=== PATIENT | male | born 1945 | race Caucasian/White ===

== ENCOUNTER → 2017-11-04 | Outpatient (CLI) | payer MEDICARE ==
--- NOTE | 2017-11-04 09:35 | RADIOLOGY REPORT (SQ) ---
EXAM DESCRIPTION: CT SOFT TISSUE NECK WITH COMPLETED DATE/TIME: 11/04/2017 9:19 am REASON FOR STUDY: SQUAMOUS CELL CARCINOMA OF SKIN, UNSPECIFIED C44.92 SQUAMOUS CELL CARCINOMA OF SK IN, UNSPECIFIED COMPARISON: None. TECHNIQUE: Post IV contrasted scanning from skull base through lung apices with review of bone, soft tissue and lung windows. Reconstructed coronal and sagittal MPR images reviewed. All images stored on PACS. All CT scanners at this facility use dose modulation, iterative reconstruction, and/or weight based d osing when appropriate to reduce radiation dose to as low as reasonably achievable (ALARA). [facility]: Dose Right [facility]: CareDose [facility]: Dose Right [facility]: Teradose 4D [facility]: NetVision CONTRAST TYPE AND DOSE: 80 mL Isovue 370- low osmolar. RENAL FUNCTION: Creatinine 1.1. RADIATION DOSE: . LIMITATIONS: None. FINDINGS: SKULL BASE: Intact. MAJOR SALIVARY GLANDS: No solid or cystic masses. No inflammatory changes. LYMPHADENOPATHY: No adenopathy. MUCOSAL MASSES OR ASYMMETRY: No mucosal masses or asymmetry. LARYNX/CORDS: No abnormal findings. VASCULAR STRUCTURES: The major vessels are patent. LUNG APICES: Clear. BONES: Intact. THYROID: Normal size. No masses. PARANASAL SINUSES: Clear. OTHER: No other significant finding. IMPRESSION: NO SIGNIFICANT FINDING IN THE SOFT TISSUES OF THE NECK. TECHNICAL DOCUMENTATION: JOB ID: [id number] Quality ID # [id number]: Final reports with documentation of one or more dose reduction techniques (e.g., Au tomated exposure control, adjustment of the mA and/or kV according to patient size, use of iterative reconstruction technique) 2010 [employer]- All Rights Reserved
--- NOTE | 2017-11-04 09:37 | RADIOLOGY REPORT (SQ) ---
EXAM DESCRIPTION: CT CHEST WITH COMPLETED DATE/TIME: 11/04/2017 9:19 am REASON FOR STUDY: SQUAMOUS CELL CARCINOMA OF SKIN, UNSPECIFIED C44.92 SQUAMOUS CELL CARCINOMA OF SK IN, UNSPECIFIED COMPARISON: None. TECHNIQUE: CT scan of the chest performed using helical scanning technique with dynamic intravenous contrast injection. Images reviewed with lung, soft tissue and bone windows. Reconstructed coronal and sagittal MPR images reviewed. All images stored on PACS. All CT scanners at this facility use dose modulation, iterative reconstruction, and/or weight based d osing when appropriate to reduce radiation dose to as low as reasonably achievable (ALARA). [facility]: Dose Right [facility]: CareDose [facility]: Dose Right [facility]: Teradose 4D [facility]: INFOGRAPHIQS CONTRAST TYPE AND DOSE: contrast/concentration: Isovue 370.00 mg/ml; Total Contrast Delivered: 80.0 ml; Total Saline Delivered: 55.0 ml RENAL FUNCTION: Creatinine 1.1. RADIATION DOSE: . LIMITATIONS: None. FINDINGS: LUNGS AND PLEURA: No opacities, nodules, masses. No pneumothorax. No effusions. HILAR AND MEDIASTINAL STRUCTURES: No identified masses or abnormal nodes. HEART AND VASCULAR STRUCTURES: No aneurysm or dissection. No central pulmonary emboli. No pericardi al effusion. HARDWARE: None in the chest. UPPER ABDOMEN: No significant findings. Limited exam. THYROID AND OTHER SOFT TISSUES: No masses. No adenopathy. BONES: No significant finding. OTHER: No other significant finding. IMPRESSION: NORMAL CT OF THE CHEST WITH IV CONTRAST. TECHNICAL DOCUMENTATION: JOB ID: [id number] Quality ID # [id number]: Final reports with documentation of one or more dose reduction techniques (e.g., Au tomated exposure control, adjustment of the mA and/or kV according to patient size, use of iterative reconstruction technique) 2010 [employer]- All Rights Reserved
== END ==
LOC: RAD 08:37
PROVIDERS: ATTEND Otolaryngology
DX: C44.92 Squamous cell carcinoma of skin, unspecified (principal)
CPT/HCPCS: 70491; 71260; 82565

== ENCOUNTER 2017-12-03 08:10 | Day surgery (SDC) | payer MEDICARE ==
[~2017-12-03 08:10] MED LIST: CEFAZOLIN 1 GM/D5W RTU 1 GM/50 ML RTUPB IV PRN; DEXTROSE 5%-LACTATED RINGERS 1,000 ML IV PRN
[2017-12-03 10:12] LABS: HEMATOCRIT 41.8 % (37.9-51.0); HEMOGLOBIN 14.1 g/dL (13.5-17.0); MEAN CORPUSCULAR HGB CONC 33.7 g/dL (32.0-36.0); MEAN CORPUSCULAR VOLUME 83 fl (80-97); PLATELET COUNT 183 10^3/uL (150-450); RED BLOOD COUNT 5.03 10^6/uL (4.35-5.55); RED CELL DISTRIBUTION WIDTH 15.7 % (11.5-14.0); WHITE BLOOD COUNT 8.2 10^3/uL (4.0-10.5)
[2017-12-03 10:40] LABS: ANION GAP 9 (5-19); BLOOD UREA NITROGEN 26 mg/dL (7-20); CALCIUM 9.3 mg/dL (8.4-10.2); CARBON DIOXIDE 27 mmol/L (22-30); CHLORIDE 102 mmol/L (98-107); GLUCOSE 145 mg/dL (75-110); POTASSIUM 5.3 mmol/L (3.6-5.0); SODIUM 137.8 mmol/L (137-145)
[2017-12-03] MEDS ORDERED: PROMETHAZINE HCL INJ 25 MG/1 ML VIAL IV PRN ×2 (10:56)
[2017-12-03] MEDS ORDERED: FENTANYL CITRATE INJ/PF 100 MCG/2 ML AMPUL IV PRN ×3 (10:56)
[2017-12-03] MEDS ORDERED: MORPHINE SULFATE 10 MG/ML INJ IV PRN (10:56)
[2017-12-03] MEDS ORDERED: OXYCODONE-ACETAMINOPHEN 5-325 MG TABLET PO PRN ×2 (10:56)
[2017-12-03] MEDS ORDERED: MEPERIDINE HCL/PF INJ 25 MG/1 ML DISP.SYRIN IV PRN (10:56)
[2017-12-03] MEDS ORDERED: DIPHENHYDRAMINE HCL 50 MG/ML VIAL IV PRN (10:56)
--- NOTE | 2017-12-03 11:08 | Operative Report ---
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 Esophagogastroduodenoscopy. 2. Percutaneous endoscopic gastrostomy placement SURGEON: JESENIA DUNCAN 1ST BAG CHECKER: JASON JOSEPH ANESTHESIA: LMAC TISSUE REMOVED OR ALTERED: None COMPLICATIONS: None ESTIMATED BLOOD LOSS: Scant INTRAOPERATIVE FINDINGS: See below PROCEDURE: Patient was seen in the preop holding area, cleared for LMAC anesthesia taken to the operating room where LMAC anesthesia was induced. Abdomen exposed, hair clipped in the epigastric area Instrumentation set up for upper endoscopy. Surgical plan surgical timeout conducted. Oral mouthpiece inserted. The flexible adult upper endoscope was advanced through the oropharynx down the hypopharynx past the tumor which was the posterior lateral side of the hypopharynx, with the scope advanced down through the esophagus, stomach, into the duodenum. The duodenum and stomach were grossly normal. There was some distal esophagitis. No biopsy performed. No tumor seen in the upper GI tract. Suitable site for placement of the PEG was chosen based on transillumination and the intra-abdominal wall and depression of the anterior abdominal wall. Skin was anesthetized with 1% lidocaine. Needle and Jelco threaded through the anterior abdominal wall, wire threaded through the Jelco, wire snared with the endoscope and the wire and snare with the endoscope brought out through the patient's oropharynx. A 24 [place] Endo I was pushed over the wire and brought onto the patient's anterior abdominal wall. Repeat endoscopy confirmed excellent positioning of the feeding tube. There was no significant bleeding. Wire removed from the PEG, PEG tube shortened, bolsters applied with the exterior component 24 cm from the flange. Appropriate dressings applied. Patient taught procedure well. He was taken to the recovery in stable condition. Paul dictating on Kobi Brito
[2017-12-03] MEDS ORDERED: ACETAMINOPHEN WITH CODEINE #3 TABLET PO PRN (11:10)
--- NOTE | 2017-12-03 11:10 | PDOC DISCHARGE SUMMARY ---
Discharge Summary (SDC) - Discharge Final Diagnosis: Squamous cell carcinoma of the hypopharynx Date of Surgery: 12/03/17 Discharge Date: 12/03/17 Condition: Good Treatment or Instructions: PEG tube instructions provided; return to clinic in [facility] in 2 weeks, take Tylenol as needed pain. Referrals: LACHELLE HERNANDES MD [Primary Care Provider] - Discharge Diet: As Tolerated Discharge Activity: Activity As Tolerated Home Care Assistance: Home Health Report the Following to Your Physician Immediately: Shortness of Breath, Increase in Pain, Fever over 101 Degrees
[2017-12-03] MEDS ORDERED: ACETAMINOPHEN WITH CODEINE #3 TABLET ONE (12:04)
[2017-12-03 13:20] VITALS: BP 108/56
--- NOTE | 2017-12-04 12:05 | EKG REPORT ---
SEVERITY:- OTHERWISE NORMAL ECG - SINUS RHYTHM LOW VOLTAGE IN FRONTAL LEADS : Confirmed by: Vicky Cruz 04-Dec-2017 12:04:54
== END 2017-12-03 13:10 | disposition home or self-care (01) ==
LOC: OROUT 08:10
PROVIDERS: ATTEND Surgery
PROC: 0DH63UZ Insertion of Feeding Device into Stomach, Percutaneous Approach (ICD-10-PCS; principal; 2017-12-03 10:15)
DX: C13.9 Malignant neoplasm of hypopharynx, unspecified (principal); I10 Essential (primary) hypertension; E78.00 Pure hypercholesterolemia, unspecified; E11.40 Type 2 diabetes mellitus with diabetic neuropathy, unspecified; Z80.0 Family history of malignant neoplasm of digestive organs; Z79.01 Long term (current) use of anticoagulants; Z95.5 Presence of coronary angioplasty implant and graft; Z87.891 Personal history of nicotine dependence; Z79.84 Long term (current) use of oral hypoglycemic drugs; Z79.899 Other long term (current) drug therapy
CPT/HCPCS: 36415; 82962; 85027; 80048; 93005; 93010; 43246; A9270; J0690; 731

== ENCOUNTER → 2018-01-22 | Outpatient (CLI) | payer MEDICARE ==
[2018-01-22 16:22] LABS: ABSOLUTE BASOPHILS # (AUTO) 0.1 10^3/uL (0.0-0.2); ABSOLUTE EOSINOPHILS # (AUTO) 0.1 10^3/uL (0.0-0.6); ABSOLUTE LYMPHOCYTES (AUTO) 0.6 10^3/uL (0.5-4.7); ABSOLUTE MONOCYTES (AUTO) 0.7 10^3/uL (0.1-1.4); ABSOLUTE NEUT (AUTO) 4.4 10^3/uL (1.7-8.2); HEMATOCRIT 42.7 % (37.9-51.0); HEMOGLOBIN 13.9 g/dL (13.5-17.0); LYMPHOCYTES % (AUTO) 9.6 % (13-45); MEAN CORPUSCULAR HEMOGLOBIN 28.3 pg (27.0-33.4); MEAN CORPUSCULAR HGB CONC 32.7 g/dL (32.0-36.0); MEAN CORPUSCULAR VOLUME 87 fl (80-97); MONOCYTES % (AUTO) 12.1 % (3-13); PLATELET COUNT 241 10^3/uL (150-450); RED BLOOD COUNT 4.92 10^6/uL (4.35-5.55); RED CELL DISTRIBUTION WIDTH 15.6 % (11.5-14.0); SEGMENTED NEUTROPHILS % (AUTO) 76.3 % (42-78); TOTAL CELLS COUNTED % (AUTO) 100 %; WHITE BLOOD COUNT 5.8 10^3/uL (4.0-10.5)
== END ==
LOC: LAB 15:49
PROVIDERS: ATTEND Radiology Radiation Oncology
DX: C05.1 Malignant neoplasm of soft palate (principal)
CPT/HCPCS: 36415; 85025

== ENCOUNTER → 2018-01-29 | Outpatient (CLI) | payer MEDICARE ==
--- NOTE | 2018-01-29 09:45 | RADIOLOGY REPORT (SQ) ---
EXAM DESCRIPTION: CECILY SWALLOW COMPLETED DATE/TIME: 01/29/2018 8:33 am REASON FOR STUDY: DYSPHAGIA (R13.10) R13.10 DYSPHAGIA, UNSPECIFIED COMPARISON: None. TECHNIQUE: Videofluoroscopic swallowing examination was performed in conjunction with speech patholo gy. Videofluoroscopic imaging was obtained and reviewed and these are the findings: RADIATION DOSE: Fluoro time 1.41 minutes 1 images saved to PACS. LIMITATIONS: None FINDINGS: The patient was brought into the fluoro room and placed upright on a modified barium swall ow chair. The patient was then given multiple consistencies mixed with barium to swallow under live fluoroscopic video guidance. According to the Speech Pathologist there was no penetration or aspirat ion. Please refer to the speech pathology report for further details. IMPRESSION: NO EVIDENCE OF PENETRATION OR ASPIRATION.PLEASE SEE SPEECH PATHOLOGIST REPORT FOR OTHER FINDINGS AND RECOMMENDATIONS. COMMENT: None Quality ID 145: Final reports for procedures using fluoroscopy that document radiation exposure waylon stephanie, or exposure time and number of fluorographic images (if radiation exposure indices are not avail able) TECHNICAL DOCUMENTATION: JOB ID: [id number] [employer]- All Rights Reserved Reading location - IP/workstation name: [email or web address] [id number]
--- NOTE | 2018-01-29 09:57 | ST Modified Barium Swallow ---
Recommendation - Recommendations Recommendations: No additional skilled services indicated at this time. Patient is independent with exercises and strategies established in outpatient setting. Patient to now be discharged from outpatient speech therapy. It is likely that the patient will need additional dysphagia treatment at a later time due to nature of swallowing deficits. Medical Diagnoses - Medical Diagnoses Medical Diagnosis Description & ICD-10 Code(s): dysphagia, R13.10 Other Medical Diagnoses/Co-Morbidities: per patient report: arthritis, diabetes , heart condition (stent), high blood pressure, high cholesterol, reflux, swallowing problems, throat cancer ST Modified Barium Swallow - General Date: 01/29/18 Referring Physician: Dr. 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 No surgical invervention other than biopsy, and no current chemotherapy. The patient has been receiving radiation treatment for approximately 1 month. He does currently have a PEG placed, and is receiving majority of nutrition and hydration via tube feeds. He is still eating by mouth soft solids, and drinking liquids. No difficulty reported with liquids, but does feel solids are difficult to coordinate at times. He has been evaluated and seen in outpatient setting for dysphagia strategies and exercises due to nature of swallowing changes due to radiation treatment. Medications: no medications provided by patient Allergies: none - Functional Status Prior Functional Status: INDEPENDENT: feeding - independent Current Functional Limitations: feeding - primarily via PEG - Subjective Patient/caregiver goal(s): r/o aspiration Cognitive-Linguistic Function: WNL Speech Intelligibility: WNL Current Nutritional Means: PEG, PO Current PO diet: Soft Current symptoms: other - swallowing changes due to throat cancer and radiation treatment Pain: Patient reports, 3/5 - throat pain - Objective Assessment: Upright, Left Lateral - Food Trials Used Food trials used: Thin liquids, Pureed, Regular The patient: Was Able to Self Feed - Oral-Motor Skills Dentition: Full Velo-pharyngeal function: Unremarkable - Assessment Oral prep: Normal Labial closure: Adequate Leakage: None Mastication: Lengthy Lingual Movement: Normal Oral stage: Normal for this Procedure - Pharyngeal Stage Initiation of Pharyngeal Stage Reflex: Normal Decreased laryngeal elevation: No Reduced Velopharyngeal Closure: no Reduced pressure generation: No reduced tongue-based retraction: Yes - mild Pre-swallow pooling in valleculae: None Pre-Swallow pooling in pyriforms: None Reduced Thyro-Hyoid approximation: No Reduced epiglottic excursion: No Reduced pharyngeal peristalsis/contraction: No Multiple Swallows with: Cleared w/ Liquid Assist Post-swallow residulas vallecular: None Post-Swallow residuals in pyriforms: Mild Post-Swallow Residuals: tongue-base Reduced Cricopharyngeal opening: No Pharyngeal Stage Comments: Timely swallow reflex seen. Mildly reduced tongue base retraction seen, resulting in residue on posterior tongue with solid trials, cleared with liquid wash. Mild residue seen throughout pharynx with solid trials, cleared with second swallow or liquid wash. Some signs of tissue variance in pharynx, however, this is believed to be due to underlying neoplasm. - Fall Risk Assessment Medications/Conditions that increase fall risks include: Antidepressants, sedatives, anti-arrhythmic, diuretic, benzodiazipenes, neuroleptics. BP regulation problems, cardiac problems, balance or gait deficits, neurological problems. Is patient considered at risk for falls: no Fall Risk Actions Taken: No action needed - Behavioral Observations During evaluation process patient: was pleasant, was cooperative, able to answer questions - Treatment / Educational Needs: Treatment/Education Needs: Treatment consisted of patient education on the role of the Speech Pathologist. Patient's plan of care and golas were communicated as well as scheduling and attendance policies. Recommendations for initial home program were shared. Patient demonstrated understanding and verbalized agreement. - Impression/Summary Laryngeal Penetration: No Tracheal Aspiration: no Compesatory strategies: liquid wash Patient presents with: Pharyngeal stage dysph., Mild-Moderate Risk of Aspiration: Minimal Risk of nutritional compromise: WNL Evaluation and Findings: Patient currently presents with functional swallow skills for thin liquids and soft solids. Patient is completing dysphagia exercises and strategies established prior to radiation treatment, and is independent with these. Although majority of nutrition and hydration needs are met via PEG, patient is encouraged to continue with PO trials to ensure increased preservation of swallowing skills. No other skilled intervention is indicated at this time. Patient is indepenent with Effortful Swallow, Juan Carlos Maneuver, and Tongue Base Retraction exercises. Patient to be discharged from outpatient services at this time, patient in agreement with plan. Mr. Jacobs may be seen at a future time should additional swallowing deficits arise. - Recommendations Solid diet recommendations: Pureed, Mechanical Soft Liquid Diet Modification: Thin Strict aspiration precautions: Yes Pt/Family education and followup with MD: Yes Dysphagia therapy with ESCALATOR SERVICE MECHANIC: discontinue therapy Recommended techniques: Fully Upright During Meal, Small Bites and Sips, Alternate Bites/Sips Information, Precautions and Recommendations: Patient (Written), Patient (Verbal ), Family Member (Verbal) - Time Total Time: 30 - Plan of Care Patient to follow-up with referring physician: Yes Strategies to optimize patient understanding include:: ongoing assessment of educational needs, implementation of educational strategies, and re-education. - - -: Thank you for the opportunity to work with this patient and his/her family. Should you have any questions about this patient's plan or progress, I can be reached at [phone]. Charge G Code? - - -: Yes ST F.L. Impairment Category - Rationale Based On Rationale Based On: Func. Asses. Tool Results - Swallowing Current G8996: CJ 20-39% Impaired Goal G8997: CJ 20-39% Impaired Discharge G8998: CJ 20-39% Impaired
== END ==
LOC: RAD 08:00
PROVIDERS: ATTEND Radiology Radiation Oncology
DX: R13.10 Dysphagia, unspecified (principal)
CPT/HCPCS: 74230

== ENCOUNTER → 2018-06-18 | Outpatient (CLI) | payer MEDICARE ==
--- NOTE | 2018-06-18 16:43 | RADIOLOGY REPORT (SQ) ---
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 Reconstructed coronal and sagittal MPR images reviewed. All image s stored on PACS. All CT scanners at this facility use dose modulation, iterative reconstruction, and/or weight based d osing when appropriate to reduce radiation dose to as low as reasonably achievable (ALARA). [facility]: Dose Right [facility]: CareDose [facility]: Dose Right [facility]: Teradose 4D [facility]: [employer] CONTRAST TYPE AND DOSE: contrast/concentration: Isovue 350.00 mg/ml; Total Contrast Delivered: 75.0 ml; Total Saline Delivered: 55.0 ml RENAL FUNCTION: Creatinine 0.9 RADIATION DOSE: 40 mGy . LIMITATIONS: None. FINDINGS: SKULL BASE: Inferior brain parenchyma in the field of view unremarkable. MAJOR SALIVARY GLANDS: No solid or cystic masses. No inflammatory changes. LYMPHADENOPATHY: No adenopathy. MUCOSAL MASSES OR ASYMMETRY: No mucosal masses or asymmetry. LARYNX/CORDS: No abnormal findings. VASCULAR STRUCTURES: The major vessels are patent. LUNG APICES: Clear. BONES: No fracture. Multilevel degenerative disc changes in the cervical spine THYROID: Normal size. No masses. PARANASAL SINUSES: Clear. OTHER: No other significant finding. IMPRESSION: NO SIGNIFICANT FINDING IN THE SOFT TISSUES OF THE NECK. TECHNICAL DOCUMENTATION: JOB ID: [id number] Quality ID # [id number]: Final reports with documentation of one or more dose reduction techniques (e.g., Au tomated exposure control, adjustment of the mA and/or kV according to patient size, use of iterative reconstruction technique) 2010 [employer]- All Rights Reserved Reading location - IP/workstation name: [id number]
== END ==
LOC: RAD 14:10
PROVIDERS: ATTEND Radiology Radiation Oncology
DX: C05.1 Malignant neoplasm of soft palate (principal)
CPT/HCPCS: 70492; 82565

== ENCOUNTER 2019-05-18 08:46 | Day surgery (SDC) | payer MEDICARE ==
[~2019-05-18 08:46] MED LIST changes: -CEFAZOLIN 1 GM/D5W RTU 1 GM/50 ML RTUPB IV PRN; -DEXTROSE 5%-LACTATED RINGERS 1,000 ML IV PRN; +KETOROLAC TROMETHAMINE 0.45% 4 DROP/0.4 ML DROPERETTE OS PRN; +LIDOCAINE 1% INJ-PF (10 MG/ML) 30 ML SDV ONE; +MIDAZOLAM 2 MG/2 ML INJ ONE
[2019-05-18] MEDS: TETRACAINE HCL 0.5% OPH SOLN 0.6 ML DROPERETTE OS PRN ×2 (09:13→10:45)
[2019-05-18] MEDS: CYCLOPENTOLATE 0.2%/PHENYLEPHRINE 1% OPH SOLN 2 ML OS PRN ×3 (09:13→10:36)
[2019-05-18] MEDS: TROPICAMIDE 1% OPH SOLN 3 ML OS PRN ×3 (09:13→10:36)
[2019-05-18] MEDS: BESIFLOXACIN HCL 0.6% OPH SUSP 5 ML BOTTLE OS PRN ×4 (09:14→10:26)
[2019-05-18] MEDS: LIDOCAINE 4% INJ/PF (40 MG/ML) 5 ML AMPUL OS PRN ×2 (10:04)
[2019-05-18] MEDS: BUPIVACAINE HCL 0.75% INJ/PF (7.5 MG/1 ML) 10 ML SDV OS PRN ×2 (10:04)
[2019-05-18] MEDS: EPINEPHRINE INJ/PF 1 MG/1 ML AMPULE ONE ×2 (10:16)
[2019-05-18] MEDS: CHONDR SU A NA/HYALUR INTRAOC KIT (SURGICARE) ONE ×2 (10:16)
[2019-05-18] MEDS: LIDOCAINE 1%/PHENYLEPHRINE 1.5% 1 ML VIAL ONE ×2 (10:18)
[2019-05-18] MEDS: DORZOLAMIDE HCL 2%/TIMOLOL MALEAT 0.5% OPH SOLN 10 ML OS PRN ×2 (10:26)
--- NOTE | 2019-05-18 10:40 | [facility] OPERATIVE REPORT E ---
[facility] Operative Report NAME: NOLVIA GILL AGE: 73Y DATE OF SURGERY: 05/18/2019 ROOM: PREOPERATIVE DIAGNOSIS: Cataract, left eye. POSTOPERATIVE DIAGNOSIS: Cataract, left eye. PROCEDURE PERFORMED: Phacoemulsification with posterior chamber intraocular lens, left eye. SURGEON: BONG FORD M.D. ANESTHESIA: Topical with MAC. INDICATIONS FOR SURGERY: Difficulty with glare and watching TV. PROCEDURE: The patient was brought to the operating room and placed on the operative table. Following tetracaine drops, topical anesthesia was administered. This consisted of instrument wipe pledgets soaked in a solution of 4% Xylocaine mixed with 0.75% Marcaine in a 1:2 ratio. A 2 x 1 cm pledget was placed in the superior fornix. A 1 x 1 cm pledget was placed in the inferior fornix. The eye was patched shut for 5 minutes. The patch was removed. The eye was sterilely prepped and draped in the usual manner. Lid speculum was placed in the eye. The pledgets were removed and 4-0 black silk sutures were placed around the superior and the inferior rectus muscles to be used as traction. A conjunctival peritomy was made at the 10 o'clock position. Hemostasis was obtained with bipolar cautery. A posterior limbal groove was created using a crescent knife and dissected anteriorly towards the cornea. A sharp point blade was used to create a paracentesis site at the 2 o'clock position. A 2.4 mm keratome was used to enter the anterior chamber through the groove. Viscoelastic was injected into the anterior chamber. An anterior capsulotomy was performed using Utrata forceps in a capsulorrhexis fashion. Hydrodissection and hydrodelineation were performed. Phacoemulsification was performed in [id number] technique. Total phaco time was 3.5 CDE. Following this, the I/A unit was used to remove residual cortex. Viscoelastic was injected into the capsular bag. Intraocular lens model [id number], 22.0 diopters, serial number [id number], was placed in the capsular bag. The I/A unit was used to remove residual viscoelastic. The wound was seen to be watertight under high and low pressure, and no sutures were placed. The intraocular lens was well centered. The pressure was adjusted in the eye to normal pressure. The 4-0 black silk sutures and lid speculum were removed. The eye was shielded after Besivance drops were placed. The patient tolerated the procedure well and was sent to the recovery room in good condition. A drop of Cosopt was placed in the eye at the end of the surgery. Also, 0.1 mL of phenylephrine lidocaine was injected in the eye following the incision. DICTATING PHYSICIAN: BONG FORD M.D. [id number] PHY#: [id number] ID: [id number] JOB#: [id number] ACCT: [id number] cc:BONG FORD M.D. >
--- NOTE | 2019-05-18 10:40 | [facility] DISCHARGE SUMMARY E ---
[facility] Discharge Summary NAME: NOLVIA GILL AGE: 73Y ADMITTED: 05/18/2019 DISCHARGED: 05/18/2019 FINAL DIAGNOSIS: Cataract, left eye. HOSPITAL COURSE: The patient is a 73-year-old gentleman who underwent uneventful cataract extraction with intraocular lens implant, left eye, on 05/18/2019. He will be discharged to home. He was instructed to resume preoperative medications; to take Tylenol as needed for discomfort; to keep his eye shielded; to use Pred Forte, Prolensa, and moxifloxacin at 3 p.m. and 8 p.m.; and to follow up in my office in 1 day. DICTATING PHYSICIAN: BONG FORD M.D. [id number] PHY#: [id number] ID: [id number] JOB#: [id number] ACCT: [id number] cc:BONG FORD M.D. >
== END 2019-05-18 11:07 | disposition home or self-care (01) ==
LOC: SC 08:46
PROVIDERS: ATTEND Ophthalmology
DX: H25.812 Combined forms of age-related cataract, left eye (principal); H57.03 Miosis; Z96.1 Presence of intraocular lens; K21.9 Gastro-esophageal reflux disease without esophagitis; E11.9 Type 2 diabetes mellitus without complications; Z79.899 Other long term (current) drug therapy; Z79.84 Long term (current) use of oral hypoglycemic drugs
CPT/HCPCS: 66984; 82962; V2632; J2250; J3490 ×3; A9270; J0171; J2370; 142

== ENCOUNTER → 2019-08-13 | Outpatient (CLI) | payer MEDICARE | LOC: LAB 11:17 | PROVIDERS: ATTEND Internal Medicine Critical Care Medicine | DX: J18.9 Pneumonia, unspecified organism (principal) | CPT/HCPCS: 87015; 87070; 87077; 87101; 87116; 87186; 87205; 87206 ==

== ENCOUNTER 2020-02-27 18:51 | Emergency (ER) | payer MEDICARE ==
[2020-02-27 19:12] LABS: HEMATOCRIT 34.2 % (37.9-51.0); HEMOGLOBIN 11.4 g/dL (13.5-17.0); MEAN CORPUSCULAR HEMOGLOBIN 30.4 pg (27.0-33.4); MEAN CORPUSCULAR HGB CONC 33.4 g/dL (32.0-36.0); MEAN CORPUSCULAR VOLUME 91 fl (80-97); PLATELET COUNT 366 10^3/uL (150-450); RED BLOOD COUNT 3.75 10^6/uL (4.35-5.55); RED CELL DISTRIBUTION WIDTH 21.6 % (11.5-14.0); WHITE BLOOD COUNT 8.3 10^3/uL (4.0-10.5)
--- NOTE | 2020-02-27 19:12 | ER Document Report ---
ED General - General Stated Complaint: LOW FLOW ALARM ON LVAD/SYNCOPE Time Seen by Provider: 02/27/20 18:55 Primary Care Provider: JANI LAWRENCE MD [Primary Care Provider] - Follow up as needed Notes: HPI: 74-year-old male with an extensive past medical history after what he states was around a 5-month admission to [facility], secondary to respiratory infections as well as a needed ileostomy; just discharged 3 days ago, LVAD placed during this admission in December, who presents today after he states he leaned over and had a syncopal-like episode onto the carpet. Patient states that his LVAD "low flow" alarm went off 3 times today. Only transiently. He states that this is unusual for him as he is only heard that sound one time in his past. Patient denies any and all headache, neck pain, chest pain, abdominal pain, fevers, cough, shortness of breath, vomiting, or diarrhea. This was a witnessed incident. No seizure activity or incontinence. Patient states today he has felt a little "weak all over" with a loss of appetite but denies any other real symptomatology. I called and spoke to his who is a better historian. She corroborates most of what is above. She states he has had no increased output from his ostomy. No fevers or vomiting. No diarrhea. This is the first time the patient has passed out since being discharged on . There was a transient alarm evening but no alarming since that time. She states that the alarm was going off around 4 times today. She states he did not fall or hit his head but he has "passed out" multiple times attempting to get up from the bed and from chairs. He is on Coumadin. ROS: See HPI All other review of systems reviewed and otherwise negative Reviewed vital signs and nursing note as charted by RN. PHYSICAL EXAM: CONSTITUTIONAL: Alert and oriented and responds appropriately to questions HEAD: Normocephalic; atraumatic EYES: PERRL; Conjunctivae clear, sclerae non-icteric ENT: Normal nose; no rhinorrhea; moist mucous membranes; pharynx without lesions noted NECK: Supple without meningismus; no JVD present; healing anterior scar consistent with a recent trach; non-tender; no cervical lymphadenopathy, no masses CARD: LVAD hum is present RESP: Normal chest excursion without splinting or tachypnea; breath sounds clear and equal bilaterally; no wheezes, no rhonchi, no rales ABD/GI: Normal bowel sounds; non-distended; LVAD dressing to the left abdomen; ileostomy to the mid lower abdomen with a pink stoma with normal color flui; abdomen is soft, non-tender BACK: The back appears normal and is non-tender to palpation EXT: Normal ROM in all joints; non-tender to palpation; no edema SKIN: Patient is consistent with venipuncture present to bilateral upper extremities. Extremities are slightly cool but perfused with normal color NEURO: CN 2-12 intact; 5/5 bilateral upper and lower extremity strength with sensation intact to light touch PSYCH: The patient's mood and manner are appropriate. Grooming and personal hygiene are appropriate. TRAVEL OUTSIDE OF THE [place] IN LAST 30 DAYS: No - Related Data Allergies/Adverse Reactions: No Known Allergies Allergy (Unverified 12/02/17 16:17) Past Medical History - Social History Smoking Status: Unknown if Ever Smoked Family History: Reviewed & Not Pertinent - Past Medical History Cardiac Medical History: Reports: Hx Coronary Artery Disease - STENT IN CORONARY ARTERY Denies: Hx Heart Attack, Hx Hypertension - NO MEDS IN APPROX 1YR Pulmonary Medical History: Denies: Hx Asthma, Hx Bronchitis, Hx COPD, Hx Pneumonia Neurological Medical History: Denies: Hx Cerebrovascular Accident, Hx Seizures Endocrine Medical History: Reports: Hx Diabetes Mellitus Type 2 GI Medical History: Denies: Hx Hepatitis, Hx Hiatal Hernia, Hx Ulcer Musculoskeletal Medical History: Reports Hx Arthritis - LEFT FOOT Infectious Medical History: Denies: Hx Hepatitis Past Surgical History: Denies: Hx Open Heart Surgery, Hx Pacemaker - Immunizations Hx Diphtheria, Pertussis, Tetanus Vaccination: Yes Hx Pneumococcal Vaccination: 11/10/16 Physical Exam - Vital signs Vitals: Resp 19 02/27/20 18:55 Course - Re-evaluation Re-evalutation: 02/27/20 19:11 Given the above history and physical examination, with the patient speaking, we will obtain a Doppler blood pressure and place the patient on the monitor and obtain basic laboratory work as well as an EKG. The LVAD hum is present. Pat ient is conversational. Heart rate is in the 80s. Good coloration with slightly cool skin to all 4 extremities EKG shows extensive artifact consistent with the LVAD but what appears to be sinus rhythm. 02/27/20 19:[address] Cr the bankruptcy assistant on-call here at this facility. He sta trent he is limited experience with LVAD devices and does not believe he would be able to properly interpret the echo. 02/27/20 20:00 Labs initially as recorded. Slightly low sodium and chloride. Systolic Doppler blood pressure was 80 systolic x2. I did call and speak directly to the regarding the patient's condition and to obtain a better history as recorded above. I have provided a 500 cc bolus and will discuss with the transfer center at [facility]. 02/27/20 20:13 I have called and spoken to the transfer center as well as the LVAD coordinator Leigh. We have gone over the patient's previous discharge laboratory values compared to today. The sodium is 3 points low and the BUN is slightly higher. Patient is already on Midrin 5 mg 3 times daily. Given the multiple episodes today, there is concern that the patient may need observation. She will accept the transfer to Dr. Pola Ponce. - Vital Signs Vital signs: Temp Pulse Resp BP Pulse Ox 21 H 93/72 L 02/27/20 20:00 02/27/20 19:19 - Laboratory Result Diagrams: 02/27/20 19:00 02/27/20 19:00 Laboratory results interpreted by me: 02/27/20 02/27/20 19:00 19:00 RBC 3.75 L Hgb 11.4 L Hct 34.2 L RDW 21.6 H Band Neutrophils % 6 H Lymphocytes % (Manual) 11 L Sodium 126.8 L Chloride 89 L Carbon Dioxide 38 H Anion Gap 0 L BUN 21 H Creatinine 0.43 L Glucose 74 L Calcium 8.3 L Discharge - Discharge Clinical Impression: LVAD (left ventricular assist device) present Syncopal episodes Qualifiers: Syncope type: unspecified Qualified Code(s): R55 - Syncope and collapse Condition: Fair Disposition: [place] Referrals: JANI LAWRENCE MD [Primary Care Provider] - Follow up as needed
[2020-02-27] MEDS ORDERED: NORMAL SALINE 1000 ML 1,000 ML IV ONE (19:13)
--- NOTE | 2020-02-27 19:22 | EKG REPORT ---
SEVERITY:- DEFECTIVE ECG - TECHNICALLY POOR TRACING - PLEASE REPEAT ECG! SINUS RHYTHM NONSPECIFIC INTRAVENTRICULAR CONDUCTION DELAY : Confirmed by: Augustine Menon MD 27-Feb-2020 19:21:31
[2020-02-27 19:27] LABS: BLOOD UREA NITROGEN 21 mg/dL (7-20); CALCIUM 8.3 mg/dL (8.4-10.2); CARBON DIOXIDE 38 mmol/L (22-30); CHLORIDE 89 mmol/L (98-107); GLUCOSE 74 mg/dL (75-110); POTASSIUM 4.5 mmol/L (3.6-5.0)
[2020-02-27 19:33] LABS: ANION GAP 0 (5-19)
[2020-02-27 19:40] LABS: ABSOLUTE LYMPHOCYTES# (MANUAL) 0.9 10^3/uL (0.5-4.7); ABSOLUTE MONOCYTES # (MANUAL) 0.4 10^3/uL (0.1-1.4); BAND NEUTROPHILS % (MANUAL) 6 % (3-5); BASOPHILS % (MANUAL) 0 % (0-2); EOSINOPHILS % (MANUAL) 0 % (0-6); LYMPHOCYTES % (MANUAL) 11 % (13-45); MONOCYTES % (MANUAL) 5 % (3-13); SEGMENTED NEUTROPHILS % (MAN) 78 % (42-78); TOTAL CELLS COUNTED 100
[2020-02-27 19:41] LABS: ANISOCYTOSIS 2+; PLATELET COMMENT ADEQUATE; POLYCHROMASIA 2+
[2020-02-27 20:05] VITALS: BP 93/72
[2020-02-27 20:13] LABS: INTERNATIONAL RATION (INR) 1.67; PROTHROMBIN TIME 19.9 SEC (11.4-15.4)
--- NOTE | 2020-02-27 21:45 | RADIOLOGY REPORT (SQ) ---
EXAM DESCRIPTION: X-RAY CHEST- One View CLINICAL HISTORY: History of LVAD presenting with syncope. COMPARISON: None available. TECHNIQUE: Single view of the chest. FINDINGS: Slightly rotated position technically limits evaluation. The left costophrenic angle is collimated from view. Left ventricular assist device is noted, incompletely evaluated on a single view chest radiograph. The cardiac silhouette is normal in size with cardiothoracic postoperative change including median sternotomy wires. No focal pulmonary opacity is definitively identified within the technical limitations of this exam. IMPRESSION: Left ventricular assist device. Cardiac silhouette is normal in size.
[2020-02-27 21:56] LABS: APPEARANCE,URINE SLIGHTLY-CLOUDY; BILIRUBIN,URINE NEGATIVE (NEGATIVE); COLOR,URINE YELLOW; GLUCOSE, URINE NEGATIVE (NEGATIVE); KETONES,URINE NEGATIVE (NEGATIVE); LEUKOCYTE ESTERASE,URINE MODERATE (NEGATIVE); NITRITE,URINE NEGATIVE (NEGATIVE); PROTEIN,URINE 30 mg/dL (NEGATIVE); URINE SPECIFIC GRAVITY 1.016; UROBILINOGEN,URINE NEGATIVE mg/dL (<2.0)
== END 2020-02-27 22:58 | disposition short-term general hospital (02) ==
LOC: ER 18:51
DX: R55 Syncope and collapse (principal); I25.10 Atherosclerotic heart disease of native coronary artery without angina pectoris; E11.9 Type 2 diabetes mellitus without complications; Z98.890 Other specified postprocedural states; Z95.811 Presence of heart assist device; Z79.02 Long term (current) use of antithrombotics/antiplatelets; Z93.2 Ileostomy status
CPT/HCPCS: 93005; 99285; 96360; 96361; 36415; 85025; 85610; 80048; 81001; 71045; 93010; J7030